=== PATIENT | male | born 1965 | race Caucasian/White ===

== ENCOUNTER 2021-07-01 18:59 | Emergency (ER) | payer BC ==
[2021-07-01] MEDS ORDERED: Lorazepam 2 MG/ML VIAL ONE (20:25)
[2021-07-01] MEDS ORDERED: Multivitamins, Adult 10 ML, Thiamine HCl 100 MG, Folic Acid 1 MG in Dextrose 5 %-0.45 %... IV ONE (20:30)
[2021-07-01 20:32] LABS: Hemoglobin 15.7 g/dL (13.5-17.5); Mean Corpuscular HGB CONC 34.1 g/dL (32.0-36.0); Mean Corpuscular Hemoglobin 32.4 pg (27.0-33.0); Mean Corpuscular Volume 95.2 fl (81.2-95.1); Mean Platelet Volume 9.2 fl (7.4-10.4); Platelet Count 157 10x3/uL (150-450); RBC Distribution Width 12.2 % (11.5-14.5); Red Blood Cell (RBC) Count 4.84 10x6/uL (4.32-5.72); White Blood Cell (WBC) Count 4.8 10x3/uL (3.5-10.5)
[2021-07-01 20:45] LABS: ALT (SGPT) 123 U/L (8-55); AST (SGOT) 121 U/L (5-34); Albumin 4.7 g/dL (3.5-5.0); Alcohol 253 mg/dL (Less than 10); Alkaline Phosphatase 71 U/L (40-110); Anion Gap 19 mmol/L (10-20); BUN (Urea Nitrogen) 10 mg/dL (8.4-25.7); Bilirubin, Total 0.7 mg/dL (0.2-1.2); Calc. Creatinine Clearance 0 mL/min (70-130); Carbon Dioxide 22 mmol/L (22-29); Chloride 107 mmol/L (98-107); Globulin 2.9 g/dL (2.4-3.5); Glucose 110 mg/dL (70-105); Protein, Total 7.6 g/dL (6.0-8.3); Sodium 144 mmol/L (136-145)
[2021-07-01 20:52] LABS: MDiff Complete? YES
[2021-07-01 20:58] LABS: Lymphocytes 40 % (21-51); Monocytes 15 % (0-10); Neutrophil 44 % (42-75); Platelet Morphology Comment Appears Adequate; Reactive Lymphocytes 1 % (0-10)
== END 2021-07-01 23:36 | disposition home or self-care (01) ==
LOC: CSHERS 18:59
DX: F10.10 Alcohol abuse, uncomplicated (principal); E78.5 Hyperlipidemia, unspecified; I10 Essential (primary) hypertension
CPT/HCPCS: 80053; 80307; 85025; 96365; 96375; J2060; J3411; J7042